=== PATIENT | female | born 1995 | race Caucasian/White ===

== ENCOUNTER 2022-04-24 17:08 | Emergency (ER) | payer OTHER ==
[~2022-04-24] VITALS: Ht 154.9 cm; Wt 81.7 kg
== END 2022-04-24 17:49 | disposition home or self-care (01) ==
LOC: ER 17:08
DX: L23.7 Allergic contact dermatitis due to plants, except food (principal); Z88.8 Allergy status to other drugs, medicaments and biological substances; Z91.040 Latex allergy status
CPT/HCPCS: J3301